=== PATIENT | male | born 1985 | race American Indian/Alaskan Native ===

== ENCOUNTER 2018-10-25 04:17 | Emergency (ER) | payer SELFPAY ==
[2018-10-25 05:09] LABS: Mean Corpuscular HGB Conc 35 % (32-34); Mean Corpuscular Volume 91 fl (84-94); Platelet Count 154 K/mm3 (140-440); Red Blood Count 5.61 M/mm3 (3.65-5.03); Red Cell Distribution Width 13.2 % (13.2-15.2)
[2018-10-25 05:10] LABS: Hematocrit 50.8 % (35.5-45.6); Hemoglobin 17.9 gm/dl (11.8-15.2)
[2018-10-25] MEDS ORDERED: NACL 0.9% 1000 ML 1,000 ML IV ONE ×2 (05:19→08:06)
[2018-10-25] MEDS ORDERED: PEPCID IV ONE (05:19)
[2018-10-25] MEDS ORDERED: ZOFRAN IV ONE (05:19)
--- NOTE | 2018-10-25 05:20 | Event Note ---
Date: 10/25/18 Medical screening examination: 33-year-old gentleman, denies past medical history, coming in with abdominal cramping, dark bloody stools, history of hot flashes, and "just not feeling well." Walking with a steady gait, clinically sober, patient appears to be uncomfortable. Screening laboratory studies ordered, supportive control/medications have been ordered. Vital Signs 10/25/18 04:19 Temperature 97.7 F Pulse Rate 86 Respiratory 18 Rate Blood Pressure 134/75 O2 Sat by Pulse 100 Oximetry
[2018-10-25 05:44] LABS: Alanine Aminotransferase 22 units/L (7-56); Albumin 4.2 g/dL (3.9-5); BUN/Creatinine Ratio 24; Blood Urea Nitrogen 33 mg/dL (9-20); Calcium 9.7 mg/dL (8.4-10.2); Hemolysis Index 4
[2018-10-25] MEDS ORDERED: MORPHINE IV ONE ×2 (06:22→08:05)
[2018-10-25 06:46] LABS: Bilirubin,Urine NEG (Negative); Blood,Urine MOD (Negative); Color,Urine Yellow (Yellow); Hyaline Casts,Urine 1 /LPF; Mucus,Urine FEW /HPF; Urobilinogen,Urine < 2.0 mg/dL (<2.0)
--- NOTE | 2018-10-25 08:24 | Emergency Department Report ---
ED Abdominal Pain HPI - General Chief Complaint: Abdominal Pain Stated Complaint: ABDOMINAL PAIN/DIARRHEA Time Seen by Provider: 10/25/18 06:13 Source: patient, family Mode of arrival: Ambulatory Limitations: No Limitations - History of Present Illness Initial Comments: 33-year-old male with no past medical or surgical history presents to the hospital complaining of abdominal pain and bloody diarrhea for the past 24 hours. He had some bowel movements containing only blood in his experiencing tenesmus. He complains of sharp intermittent mid and left lower quadrant abdominal pain rated 10/10 intensity and worse with palpation. He denies vomiting, fever, or rectal pain. He reports a lot of alcohol intake this past Monday, Monday, and Monday but denies daily use. He also denies anticoagulate or aspirin use. Severity scale (0 -10): 8 - Related Data Previous Rx's Medication Instructions Recorded Last Taken Type Azithromycin [Zithromax TAB] 500 mg PO QDAY #3 tablet 10/25/18 Unknown Rx HYDROcodone/APAP 5-325 [[place] 1 each PO Q6HR PRN #20 tablet 10/25/18 Unknown Rx 5/325] Promethazine [Phenergan] 25 mg PO Q6HR PRN #20 tab 10/25/18 Unknown Rx Allergies Allergy/AdvReac Type Severity Reaction Status Date / Time No Known Allergies Allergy Unverified 10/25/18 04:23 ED Review of Systems ROS: Stated complaint: ABDOMINAL PAIN/DIARRHEA Other details as noted in HPI Comment: All other systems reviewed and negative ED Past Medical Hx - Past Medical History Previous Medical History?: No - Surgical History Past Surgical History?: No - Social History Smoking Status: Current Every Day Smoker Substance Use Type: Alcohol - Medications Home Medications: Home Medications Medication Instructions Recorded Confirmed Last Taken Type Azithromycin [Zithromax TAB] 500 mg PO QDAY #3 tablet 10/25/18 Unknown Rx HYDROcodone/APAP 5-325 [[place] 1 each PO Q6HR PRN #20 tablet 10/25/18 Unknown Rx 5/325] Promethazine [Phenergan] 25 mg PO Q6HR PRN #20 tab 10/25/18 Unknown Rx ED Physical Exam - General Limitations: No Limitations - Other Other exam information: General: No limitations, patient is alert in no acute distress Head exam: Atraumatic, normocephalic Eyes exam: Normal appearance ENT: Moist mucous membrane Neck exam: Normal inspection, full range of motion, no meningismus nontender Respiratory exam: Clear to auscultation bilateral, no wheezes, rales, crackles Cardiovascular: Normal rate and rhythm, normal heart sounds Abdomen: Soft, nondistended, lower abdominal pain greatest in the left lower quadrant, with normal bowel sounds, no rebound, or guarding Rectal: No external lesions or hemorrhoids. Brown stool with pink-colored blood work Extremity: Full range of motion normal inspection no deformity Back: Normal Inspection, full range of motion, no tenderness Neurologic: Alert, oriented x3, cranial nerves intact, no motor or sensory deficit Psychiatric: normal affect, normal mood Skin: Warm, dry, intact ED Course Vital Signs 10/25/18 10/25/18 10/25/18 04:19 05:38 07:20 Temperature 97.7 F Pulse Rate 86 63 60 Respiratory 18 16 16 Rate Blood Pressure 134/75 Blood Pressure 130/75 119/72 [Right] O2 Sat by Pulse 100 100 99 Oximetry 10/25/18 10/25/18 10/25/18 08:25 10:30 11:55 Temperature Pulse Rate 60 58 L Respiratory 18 15 16 Rate Blood Pressure Blood Pressure 109/60 119/69 [Right] O2 Sat by Pulse 98 99 Oximetry - Reevaluation(s) Reevaluation #1: 10/25/18 13:37 glu 146 - Consultations Consultation #1: 10/25/18 10:11 case d/w Dr cami ROBBINS, will come to [facility] ED Medical Decision Making - Lab Data Result diagrams: 10/25/18 04:36 10/25/18 04:33 Lab Results 10/25/18 10/25/18 10/25/18 Range/Units 04:33 04:36 05:22 WBC 7.3 (4.5-11.0) K/mm3 RBC 5.61 H (3.65-5.03) M/mm3 Hgb 17.9 H (11.8-15.2) gm/dl Hct 50.8 H (35.5-45.6) % MCV 91 (84-94) fl MCH 32 (28-32) pg MCHC 35 H (32-34) % RDW 13.2 (13.2-15.2) % Plt Count 154 (140-440) K/mm3 Add Manual Diff Complete Total Counted 100 Seg Neuts % (Manual) 38.0 L (40.0-70.0) % Band Neutrophils % 40.0 % Lymphocytes % (Manual) 12.0 L (13.4-35.0) % Reactive Lymphs % (Man) 0 % Monocytes % (Manual) 9.0 H (0.0-7.3) % Eosinophils % (Manual) 0 (0.0-4.3) % Basophils % (Manual) 1.0 (0.0-1.8) % Metamyelocytes % 0 % Myelocytes % 0 % Promyelocytes % 0 % Blast Cells % 0 % Nucleated RBC % Not Reportable Seg Neutrophils # Man 2.8 (1.8-7.7) K/mm3 Band Neutrophils # 2.9 K/mm3 Lymphocytes # (Manual) 0.9 L (1.2-5.4) K/mm3 Abs React Lymphs (Man) 0.0 K/mm3 Monocytes # (Manual) 0.7 (0.0-0.8) K/mm3 Eosinophils # (Manual) 0.0 (0.0-0.4) K/mm3 Basophils # (Manual) 0.1 (0.0-0.1) K/mm3 Metamyelocytes # 0.0 K/mm3 Myelocytes # 0.0 K/mm3 Promyelocytes # 0.0 K/mm3 Blast Cells # 0.0 K/mm3 WBC Morphology Not Reportable Hypersegmented Neuts Not Reportable Hyposegmented Neuts Not Reportable Hypogranular Neuts Not Reportable Smudge Cells Not Reportable Toxic Granulation Not Reportable Toxic Vacuolation Not Reportable Dohle Bodies Not Reportable Pelger-Huet Anomaly Not Reportable Mattie Rods Not Reportable Platelet Estimate Consistent w auto Clumped Platelets Not Reportable Plt Clumps, EDTA Not Reportable Large Platelets Not Reportable Giant Platelets Not Reportable Platelet Satelliting Not Reportable Plt Morphology Comment Not Reportable RBC Morphology Normal Dimorphic RBCs Not Reportable Polychromasia Not Reportable Hypochromasia Not Reportable Poikilocytosis Not Reportable Anisocytosis Not Reportable Microcytosis Not Reportable Macrocytosis Not Reportable Spherocytes Not Reportable Pappenheimer Bodies Not Reportable Sickle Cells Not Reportable Target Cells Not Reportable Tear Drop Cells Not Reportable Ovalocytes Not Reportable Helmet Cells Not Reportable [place] Bodies Not Reportable [place] Rings Not Reportable [place] Cells Not Reportable Bite Cells Not Reportable Crenated Cell Not Reportable Elliptocytes Not Reportable Acanthocytes (Spur) Not Reportable Rouleaux Not Reportable Hemoglobin C Crystals Not Reportable Schistocytes Not Reportable Malaria parasites Not Reportable Paulino Bodies Not Reportable Hem Pathologist Commnt No Sodium 132 L (137-145) mmol/L Potassium 3.7 (3.6-5.0) mmol/L Chloride 90.5 L (98-107) mmol/L Carbon Dioxide 29 (22-30) mmol/L Anion Gap 16 mmol/L BUN 33 H (9-20) mg/dL Creatinine 1.4 (0.8-1.5) mg/dL Estimated GFR > 60 ml/min BUN/Creatinine Ratio 24 % Glucose 203 H (75-100) mg/dL Calcium 9.7 (8.4-10.2) mg/dL Magnesium 2.20 (1.7-2.3) mg/dL Total Bilirubin 0.70 (0.1-1.2) mg/dL AST 18 (5-40) units/L ALT 22 (7-56) units/L Alkaline Phosphatase 75 (35-129) units/L Total Creatine Kinase 85 (55-170) units/L Total Protein 7.8 (6.3-8.2) g/dL Albumin 4.2 (3.9-5) g/dL Albumin/Globulin Ratio 1.2 % Lipase 10 L (13-60) units/L Urine Color (Yellow) Urine Turbidity (Clear) Urine pH (5.0-7.0) Ur Specific [place] (1.003-1.030) Urine Protein (Negative) mg/dL Urine Glucose (UA) (Negative) mg/dL Urine Ketones (Negative) mg/dL Urine Blood (Negative) Urine Nitrite (Negative) Urine Bilirubin (Negative) Urine Urobilinogen (<2.0) mg/dL Ur Leukocyte Esterase (Negative) Urine WBC (Auto) (0.0-6.0) /HPF Urine RBC (Auto) (0.0-6.0) /HPF U Epithel Cells (Auto) (0-13.0) /HPF Hyaline Casts /LPF Urine Mucus /HPF 10/25/18 Range/Units 05:55 WBC (4.5-11.0) K/mm3 RBC (3.65-5.03) M/mm3 Hgb (11.8-15.2) gm/dl Hct (35.5-45.6) % MCV (84-94) fl MCH (28-32) pg MCHC (32-34) % RDW (13.2-15.2) % Plt Count (140-440) K/mm3 Add Manual Diff Total Counted Seg Neuts % (Manual) (40.0-70.0) % Band Neutrophils % % Lymphocytes % (Manual) (13.4-35.0) % Reactive Lymphs % (Man) % Monocytes % (Manual) (0.0-7.3) % Eosinophils % (Manual) (0.0-4.3) % Basophils % (Manual) (0.0-1.8) % Metamyelocytes % % Myelocytes % % Promyelocytes % % Blast Cells % % Nucleated RBC % Seg Neutrophils # Man (1.8-7.7) K/mm3 Band Neutrophils # K/mm3 Lymphocytes # (Manual) (1.2-5.4) K/mm3 Abs React Lymphs (Man) K/mm3 Monocytes # (Manual) (0.0-0.8) K/mm3 Eosinophils # (Manual) (0.0-0.4) K/mm3 Basophils # (Manual) (0.0-0.1) K/mm3 Metamyelocytes # K/mm3 Myelocytes # K/mm3 Promyelocytes # K/mm3 Blast Cells # K/mm3 WBC Morphology Hypersegmented Neuts Hyposegmented Neuts Hypogranular Neuts Smudge Cells Toxic Granulation Toxic Vacuolation Dohle Bodies Pelger-Huet Anomaly Mattie Rods Platelet Estimate Clumped Platelets Plt Clumps, EDTA Large Platelets Giant Platelets Platelet Satelliting Plt Morphology Comment RBC Morphology Dimorphic RBCs Polychromasia Hypochromasia Poikilocytosis Anisocytosis Microcytosis Macrocytosis Spherocytes Pappenheimer Bodies Sickle Cells Target Cells Tear Drop Cells Ovalocytes Helmet Cells [place] Bodies [place] Rings Cris Cells Bite Cells Crenated Cell Elliptocytes Acanthocytes (Spur) Rouleaux Hemoglobin C Crystals Schistocytes Malaria parasites Paulino Bodies Hem Pathologist Commnt Sodium (137-145) mmol/L Potassium (3.6-5.0) mmol/L Chloride (98-107) mmol/L Carbon Dioxide (22-30) mmol/L Anion Gap mmol/L BUN (9-20) mg/dL Creatinine (0.8-1.5) mg/dL Estimated GFR ml/min BUN/Creatinine Ratio % Glucose (75-100) mg/dL Calcium (8.4-10.2) mg/dL Magnesium (1.7-2.3) mg/dL Total Bilirubin (0.1-1.2) mg/dL AST (5-40) units/L ALT (7-56) units/L Alkaline Phosphatase (35-129) units/L Total Creatine Kinase (55-170) units/L Total Protein (6.3-8.2) g/dL Albumin (3.9-5) g/dL Albumin/Globulin Ratio % Lipase (13-60) units/L Urine Color Yellow (Yellow) Urine Turbidity Clear (Clear) Urine pH 5.0 (5.0-7.0) Ur Specific [place] 1.025 (1.003-1.030) Urine Protein 30 mg/dl (Negative) mg/dL Urine Glucose (UA) 50 (Negative) mg/dL Urine Ketones Neg (Negative) mg/dL Urine Blood Mod (Negative) Urine Nitrite Neg (Negative) Urine Bilirubin Neg (Negative) Urine Urobilinogen < 2.0 (<2.0) mg/dL Ur Leukocyte Esterase Neg (Negative) Urine WBC (Auto) 2.0 (0.0-6.0) /HPF Urine RBC (Auto) 1.0 (0.0-6.0) /HPF U Epithel Cells (Auto) 1.0 (0-13.0) /HPF Hyaline Casts 1 /LPF Urine Mucus Few /HPF - Radiology Data Radiology results: report reviewed CT abdomen pelvis w con INDICATION: llq pain, bloody stool. TECHNIQUE: All CT scans at this location are performed using the following dose modulation technique: Automated exposure control. CONTRAST: Omnipaque 240, 100 cc IV injection. COMPARISON: None available. CT abdomen: The parenchymal organs are unremarkable in appearance. Negative for abdominal mass, fluid collection or adenopathy. There is mild colonic thickening diffusely. Negative for bowel distention. CT PELVIS: Negative for pelvic mass or adenopathy. A small amount of fluid is seen at the posterior left pelvis measuring 2.5 cm. IMPRESSION: 1. Mild colitis. 2. Small amount of fluid left pelvis measuring 2.5 cm. This is likely localized ascites. - Medical Decision Making pt sx improved with ed tx he was evaluated by GI Dr Miles in ed stool culture, cdif sent prior to d/c pt will be tx with azithromycin 500 x 3 days as rec by GI pt received Flagyl IV in ed - Differential Diagnosis diverticulitis, sensory bowel disease, anal fissure, PUD Critical Care Time: No Critical care attestation.: If time is entered above; I have spent that time in minutes in the direct care of this critically ill patient, excluding procedure time. ED Disposition Clinical Impression: Colitis Disposition: - TO HOME OR SELFCARE Is pt being admited?: No Does the pt Need Aspirin: No Condition: Stable Instructions: Infectious Colitis (ED) Additional Instructions: Take the medication as prescribed. Follow up with your doctor or the clinic/doctor provided. Return if symptoms worsen as indicated by your mitch albarran instructions Prescriptions: HYDROcodone/APAP 5-325 [[place] 5/325] 1 each PO Q6HR PRN #20 tablet PRN Reason: Pain Promethazine [Phenergan] 25 mg PO Q6HR PRN #20 tab PRN Reason: Nausea Azithromycin [Zithromax TAB] 500 mg PO QDAY #3 tablet Referrals: MAURICE MILES MD [Staff Physician] - 3-5 Days Time of Disposition: 13:38
--- NOTE | 2018-10-25 09:18 | Cat Scan Report ---
CT abdomen pelvis w con INDICATION: llq pain, bloody stool. TECHNIQUE: All CT scans at this location are performed using the following dose modulation technique: Automated exposure control. CONTRAST: Omnipaque 240, 100 cc IV injection. COMPARISON: None available. CT abdomen: The parenchymal organs are unremarkable in appearance. Negative for abdominal mass, fluid collection or adenopathy. There is mild colonic thickening diffusely. Negative for bowel distention. CT PELVIS: Negative for pelvic mass or adenopathy. A small amount of fluid is seen at the posterior l eft pelvis measuring 2.5 cm. IMPRESSION: 1. Mild colitis. 2. Small amount of fluid left pelvis measuring 2.5 cm. This is likely localized ascites. Signer Name: Mario Alberto Bartholomew MD Signed: 10/25/2018 9:14 AM Workstation Name: [id number]
[2018-10-25] MEDS ORDERED: FLAGYL 500 MG/100 ML 500 MG/100 ML BAG IV ONE (10:10)
--- NOTE | 2018-10-25 10:10 | Gastroenterology Consultation ---
History of Present Illness - Reason for Consult Consult date: 10/25/18 Abd pain, bloody stool Requesting physician: AMALIA DAILEY - History of Present Illness 33-year-old male with no past medical or surgical history presents to the hospital complaining of abdominal pain and bloody diarrhea for the past 24 hours. He had some bowel movements containing only blood. He reports sharp, severe LLQ pain, coming in waves, worse with BM's, better with nothing, associated with diarrhea with 30BM in the last 24 hours, also with rectal pain. Reports not eating much, but could tolerate. No travel, abx, etc. Home meds updated/reviewed/reconciled Past History Past Surgical History: No surgical history Social history: other (intermittant alcohol use) Family history: hypertension Medications and Allergies Allergies Allergy/AdvReac Type Severity Reaction Status Date / Time No Known Allergies Allergy Unverified 10/25/18 04:23 Home Medications Medication Instructions Recorded Confirmed Last Taken Type Azithromycin [Zithromax TAB] 500 mg PO QDAY #3 tablet 10/25/18 Unknown Rx HYDROcodone/APAP 5-325 [[place] 1 each PO Q6HR PRN #20 tablet 10/25/18 Unknown Rx 5/325] Promethazine [Phenergan] 25 mg PO Q6HR PRN #20 tab 10/25/18 Unknown Rx Review of Systems - Review of Systems All systems: negative Constitutional: fatigue, weakness Gastrointestinal: nausea, vomiting, diarrhea, BRBPR Exam - Constitutional Vital Signs: Temp Pulse Resp BP Pulse Ox 97.7 F 60 18 119/72 99 10/25/18 04:19 10/25/18 07:20 10/25/18 08:25 10/25/18 07:20 10/25/18 07:20 General appearance: no acute distress - EENT Eyes: other (no scleral icterus) - Neck Neck: supple - Respiratory Respiratory effort: normal Respiratory: bilateral: CTA - Cardiovascular Rhythm: regular - Gastrointestinal General gastrointestinal: Present: soft, tender, normal bowel sounds - Integumentary Integumentary: Present: dry - Neurologic Neurological: alert and oriented x3 - Psychiatric Psychiatric: appropriate mood/affect - Labs CBC & Chem 7: 10/25/18 04:36 10/25/18 04:33 Lab Results: Laboratory Results - last 24 hr 10/25/18 10/25/18 10/25/18 04:33 04:36 05:22 WBC 7.3 RBC 5.61 H Hgb 17.9 H Hct 50.8 H MCV 91 MCH 32 MCHC 35 H RDW 13.2 Plt Count 154 Sodium 132 L Potassium 3.7 Chloride 90.5 L Carbon Dioxide 29 Anion Gap 16 BUN 33 H Creatinine 1.4 Estimated GFR > 60 BUN/Creatinine Ratio 24 Glucose 203 H Calcium 9.7 Magnesium 2.20 Total Bilirubin 0.70 AST 18 ALT 22 Alkaline Phosphatase 75 Total Creatine Kinase 85 Total Protein 7.8 Albumin 4.2 Albumin/Globulin Ratio 1.2 Lipase 10 L Urine Color Urine Turbidity Urine pH Ur Specific [place] Urine Protein Urine Glucose (UA) Urine Ketones Urine Blood Urine Nitrite Urine Bilirubin Urine Urobilinogen Ur Leukocyte Esterase Urine WBC (Auto) Urine RBC (Auto) U Epithel Cells (Auto) Hyaline Casts Urine Mucus 10/25/18 05:55 WBC RBC Hgb Hct MCV MCH MCHC RDW Plt Count Sodium Potassium Chloride Carbon Dioxide Anion Gap BUN Creatinine Estimated GFR BUN/Creatinine Ratio Glucose Calcium Magnesium Total Bilirubin AST ALT Alkaline Phosphatase Total Creatine Kinase Total Protein Albumin Albumin/Globulin Ratio Lipase Urine Color Yellow Urine Turbidity Clear Urine pH 5.0 Ur Specific [place] 1.025 Urine Protein 30 mg/dl Urine Glucose (UA) 50 Urine Ketones Neg Urine Blood Mod Urine Nitrite Neg Urine Bilirubin Neg Urine Urobilinogen < 2.0 Ur Leukocyte Esterase Neg Urine WBC (Auto) 2.0 Urine RBC (Auto) 1.0 U Epithel Cells (Auto) 1.0 Hyaline Casts 1 Urine Mucus Few Assessment and Plan Given abrupt, acute onset of symptoms and no prior symptoms highly likely will be acute infectious etiology. Given severity of symptoms and rectal bleeding do recommend Abx as below. As long as patient can tolerate full liquid diet I recommend discharge home with Azithromycin 500mg PO daily for total of 3 days Ideally, please obtain stool studies for stool culture and Cdiff prior to discharge. - Patient Problems (1) Bloody diarrhea Status: Acute (2) Abdominal pain Status: Acute (3) Colitis Status: Acute
[2018-10-25 10:39] LABS: Band Neutrophils # (Manual) 2.9 K/mm3; Eosinophils % (Manual) 0 % (0.0-4.3); Total Cells Counted 100
[2018-10-25 10:40] LABS: Platelet Estimate Consistent w Auto; RBC Morphology Normal
[2018-10-25] MEDS ORDERED: DILAUDID IV ONE (10:57)
[2018-10-25 11:59] VITALS: BP 119/69
== END 2018-10-25 14:10 | disposition home or self-care (01) ==
LOC: ED 04:17
DX: K52.9 Noninfective gastroenteritis and colitis, unspecified (principal); K92.1 Melena; Z79.899 Other long term (current) drug therapy
CPT/HCPCS: 36415; 74177; 80053; 81001; 82271; 82550; 82962; 83690; 83735; 85007; 85025; 87045; 87493; 96361; 96365; 96375; 96376; 99284; J1170; J2270; J2405; J7030; Q9966